=== PATIENT | female | born 1965 | race Caucasian/White ===

== ENCOUNTER 2019-09-02 06:30 | Day surgery (SDC) | payer OTHER ==
[~2019-09-02 06:30] MED LIST: DICLOFEN PO; [UNRECOGNIZED DRUG - OTHER] PO
[2019-09-02] MEDS ORDERED: PERCOCET 5-3251 EACH PO (10:20)
== END 2019-09-02 13:50 | disposition home or self-care (01) ==
LOC: CIR.AMB 06:30
DX: N95.0 Postmenopausal bleeding (principal)